=== PATIENT | male | born 1990 | race Caucasian/White ===

== ENCOUNTER 2018-07-26 21:51 | Emergency (ER) | payer OTHER ==
[~2018-07-26] VITALS: Ht 185.4 cm; Wt 109.8 kg
[2018-07-26 22:09] VITALS: BP 148/107
--- NOTE | 2018-07-26 22:20 | NUR ---
PT AMBULATED TO ER BED 1
[2018-07-26] MEDS ORDERED: NACL 0.9% 1,000 ML IV ONE (22:25)
[2018-07-26] MEDS ORDERED: ONDANSETRON 4 MG/2 ML VIAL IVP ONE (22:25)
--- NOTE | 2018-07-26 22:25 | NUR ---
LAB AT BEDSIDE.
--- NOTE | 2018-07-26 22:25 | NUR ---
PT BIB FRIEND C/O RUQ ABD PAIN. PT STATES TO HAVING RUQ X4 MONTHS, LAST 3 DAY PAIN PT STATES PT HAS BECOME "UNBEARABLE". VOMITING X3 DAYS, PT STATES UNABLE TO HOLD DOWN WATER. +REBOUND TENDERNESS TO SITE. DENIES TRAUMA, NO REDNESS OR SWELLING AT THIS TIME. PT STATES TO TAKEN NAPROXEN AT HOME W/O RELIEF. PT STATES BOWEL MOVEMENT TODAY, SOFTER THAN NORMAL. --SKIN WARM, DRY AND INTACT. VSS. SPEECH CLEAR. AAOX4. PT ACTING APPROPRIATLY. PT IN GOWN, IN BED; BED IN LOWER LOCKED POSITION. ER MADE AWARE OF PT STATUS. WILL CONTINUE TO MONITOR. PMH: DENIES RX: DENIES
[2018-07-26 22:42] LABS: BASOPHILS % (AUTO) 0.3 % (0.0-2.0); EOSINOPHILS # (AUTO) 0.2 K/uL (0-0.4); EOSINOPHILS % (AUTO) 1.8 % (0.0-4.0); HEMATOCRIT 51.3 % (36-52); HEMOGLOBIN 17.5 g/dL (12.0-18.0); LYMPHOCYTES # (AUTO) 1.8 K/uL (2.0-11.5); LYMPHOCYTES % (AUTO) 16.2 % (20.5-51.1); MEAN CORPUSCULAR HEMOGLOBIN 31 pg (27-31); MEAN CORPUSCULAR HGB CONC 34 g/dL (33-37); MEAN CORPUSCULAR VOLUME 91.5 fL (80-94); MONOCYTES # (AUTO) 0.9 K/uL (0.8-1.0); MONOCYTES % (AUTO) 7.8 % (1.7-9.3); NEUTROPHILS # (AUTO) 8.2 K/uL (1.8-7.7); NEUTROPHILS % (AUTO) 73.9 % (42.2-75.2); PLATELET COUNT (AUTO) 309 K/uL (140-450); RED BLOOD CELL COUNT(AUTO) 5.61 MIL/uL (4.20-6.10); RED CELL DISTRIBUTION WIDTH 14.2 % (11.6-13.7); WHITE BLOOD COUNT (AUTO) 11.1 K/uL (4.8-10.8)
--- NOTE | 2018-07-26 22:45 | NUR ---
US AT BEDSIDE.
[2018-07-26 22:58] LABS: ALBUMIN 3.7 g/dL (3.4-5.0); CARBON DIOXIDE 29.5 mmol/L (21-32); CREATININE 1.3 mg/dL (0.7-1.3); POTASSIUM 3.5 mmol/L (3.5-5.1); TOTAL BILIRUBIN 0.9 mg/dL (0.0-1.0)
[2018-07-26] MEDS ORDERED: KETOROLAC 30 MG/ML VIAL IVP ONE (23:10)
--- NOTE | 2018-07-27 01:20 | NUR ---
MOTHER AT BESIDE. PT ACTING APPROPRIATE. PT STATES PAIN IS COMING BACK A LITTLE BIT BUT TOLERABLE.
--- NOTE | 2018-07-27 01:43 | NUR ---
Dr. Gonzales evaluating patient at bedside.
--- NOTE | 2018-07-27 02:09 | NUR ---
Patient discharged with v/s stable. Patient states he is ready to go home, patient acting appropriate. Written and verbal after care instructions given and explained. Patient alert, oriented and verbalized understanding of instructions. Ambulatory with steady gait. All questions addressed prior to discharge. ID band removed. Patient advised to follow up with PMD. Rx of Zofran, Motrin, and [place] given. Patient educated on indication of medication including possible reaction and side effects. Opportunity to ask questions provided and answered.
[2018-07-27 02:53] VITALS: BP 131/45
== END 2018-07-27 02:09 | disposition home or self-care (01) ==
LOC: MED 21:51
DX: R10.11 Right upper quadrant pain (principal); R11.2 Nausea with vomiting, unspecified; Z87.891 Personal history of nicotine dependence
CPT/HCPCS: 36415; 76705; 80053; 81002; 83690; 85025; 96361; 96374; 96375; 99284; J1885; J2405; J7030; Q0092